=== PATIENT | female | born 1960 | race Caucasian/White ===

== ENCOUNTER 2018-08-24 11:27 | Emergency (ER) | payer BC ==
--- NOTE | 2018-08-24 12:42 | EDM.PDOC ---
ED HPI GENERAL MEDICAL PROBLEM - General Chief Complaint: ENT Problem Stated Complaint: SORE THROAT Time Seen by Provider: 08/24/18 12:25 Source of Information: Reports: Patient History Limitations: Reports: No Limitations - History of Present Illness INITIAL COMMENTS - FREE TEXT/NARRATIVE: 57-year-old female with a sore throat the last 12 days, exposed to strep throat and on immunosuppressant medications according to her son. Minimal cough, no ear pain, no fever or chills. Denies nausea or vomiting. 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 Denies: Fever, Chills HEENT: Reports: Throat Pain Respiratory: Reports: Cough. Denies: Shortness of Breath GI/Abdominal: Reports: No Symptoms Neurological: Reports: Other (Very significant advanced early age dementia, cared for by her son) ED EXAM, ENT - Physical Exam Exam: See Below Exam Limited By: No Limitations General Appearance: Alert, No Apparent Distress Mouth/Throat: Other (Pharyngeal and tonsillar erythema, no exudate) Neck: No: Lymphadenopathy (R), Lymphadenopathy (L) Respiratory/Chest: No Respiratory Distress, Lungs Clear Course - Vital Signs Last Recorded V/S: Last Vital Signs Temp 96.7 F 08/24/18 12:23 Pulse 86 08/24/18 12:23 Resp 14 08/24/18 12:23 BP 146/101 H 08/24/18 12:23 Pulse Ox 96 08/24/18 12:23 - Re-Assessments/Exams Free Text/Narrative Re-Assessment/Exam: 08/24/18 12:41 Discussed checking for strep versus treating, and the family strongly requests treatment. She'll be started on amoxicillin 500 3 times a day for at least 7 days, recheck in 3-4 days if not improving but finished the prescription if improving and the patient and family understand and agree with plan of treatment. Departure - Departure Time of Disposition: 13:02 Disposition: Home, Self-Care 01 Condition: Good Clinical Impression: Pharyngitis Qualifiers: Pharyngitis/tonsillitis etiology: other specified organisms Qualified Code(s): J02.8 - Acute pharyngitis due to other specified organisms - Discharge Information Instructions: Sore Throat, [id number] Referrals: PCP,None [Primary Care Provider] - Forms: ED Department Discharge Care Plan Goals: Take antibiotic 3 times a day for at least 7 days if improving. Rest and fluids will help. Consider rechecking in 3-4 days if not improving despite treatment.
== END 2018-08-24 13:02 | disposition home or self-care (01) ==
LOC: JP.ED 11:27
DX: J02.8 Acute pharyngitis due to other specified organisms (principal); E11.9 Type 2 diabetes mellitus without complications; G30.9 Alzheimer's disease, unspecified; F02.80 Dementia in other diseases classified elsewhere, unspecified severity, without behavioral disturbance, psychotic disturbance, mood disturbance, and anxiety
CPT/HCPCS: 99282